=== PATIENT | male | born 2000 | race Caucasian/White ===

== ENCOUNTER → 2023-06-09 | Emergency (ER) | payer BC, SELFPAY ==
[~2023-06-09] MED LIST: DIPHENHYDRAMINE 50 MG/ML VIAL ONE; METOCLOPRAMIDE 10 MG/2mL INJ ONE; NA CHLORIDE 0.9% 1,000 ML ONE; POTASSIUM CL SA 10 MEQ TAB PO ONE; hydrOXYzine HCL 25 MG TAB ONE
--- OUTSIDE RECORDS SUMMARY | 2023-06-09 15:22 | XMS REPORT | Continuity of Care Document ---
Author Name Unknown Address [address] [facility] [address] [place] [address] [facility] thconnect Address [address] [facility] [address] [place] [address] Care Team Providers Care Lead Caregiver Name Role Phone PCP, PATIENT DOES NOT HAVE A Primary Care Physic AYAN Valera Attending Clinician Unavailable Payers Payer Name Policy Type Policy Number Effective Date Expirati on Date Source [facility] - OUT OF STATE [id number] 2016 00:00:00 Allergies, Adverse Reactions, Alerts Allergy Name Allergy Type Status Severity Reaction(s) Onset Date Inactive Date Treating Clinician Comments Source NO KNOWN ALLERGIE S Drug Class Active [facility] Encounters Start Date/Time End Date/Time Encounter Type Admission Type Attending Clinicians Care Facility Care Department Encounter ID Source 2021-04-21 10:40:00 2021-04-21 10:40:00 Outpatient AYAN MORRIS [facility] [id number] [facility]
[2023-06-09 16:51] LABS: Absolute Lymphocytes (CBC) 0.8 K/uL (0.7-4.9); Hematocrit 51.6 % (39.6-49.0); MCV 86.4 fL (80-100); MPV 8.5 fL (7.6-11.3); Platelets 238 thou/uL (152-406); RBC Red Blood Cell Count 5.97 M/uL (4.33-5.43)
[2023-06-09 17:07] LABS: Albumin 5.2 g/dL (3.4-5.0); Bilirubin Total 1.4 mg/dL (0.2-1.0); Potassium 3.1 mEq/L (3.5-5.1); Protein, Total 8.4 g/dL (6.4-8.2)
--- NOTE | 2023-06-09 17:36 | EDPHYS ---
Physician Documentation [facility] Name: Osmany Perez Age: 23 yrs Sex: Male : 2000 Arrival Date: 06/09/2023 Time: 15:20 Bed 14 Private MD: ED Physician Bogdan De La Paz HPI: 06/09 16:36 This 23 yrs old Male presents to ER via Wheelchair with complaints of ec2 Vomiting, Anxiety, Stomach pain/dehydration. 16:36 patient arrives today for evaluation of anxiety as well as nausea and vomiting. Patient ec2 reports he has issues with anxiety, as well as to take long-term anxiety medications however has not taken them. Patient reports that he was diagnosed with COVID approximately 1 month ago this is 1+ of his nausea and vomiting symptoms started. He reports decreased p.o. intake. Reports no fevers or chills, urinary problems.. Historical: - Allergies: 15:51 No Known Allergies; db - PMHx: 15:51 None; db - PSHx: 15:51 None; db - Immunization history:: Adult Immunizations unknown. - Social history:: Smoking status: Patient denies any tobacco usage or history of. ROS: 16:36 Constitutional: as per hpi ec2 Exam: 16:36 Constitutional: GEN: NAD Head: atraumatic Eyes: EOMI Ears: External ears are ec2 normal. CV: regular rate LUNGS: no respiratory distress ABD: non-distended, soft, nontender, no guarding, nonrigid SKIN: no evidence of rashes MSK: no evidence of trauma NEURO: moves all extremities equally. Psych: Markedly anxious individual Vital Signs: 15:48 BP 121 / 74; Pulse 108; Resp 20; Temp 98.7(O); Pulse Ox 99% ; Weight 61.23 kg; Height 6 db ft. 0 in. ; 17:13 BP 102 / 66; Pulse 57; Resp 16 S; Pulse Ox 99% on R/A; kc6 18:12 BP 112 / 62; Pulse 65; Resp 17 S; Pulse Ox 99% on R/A; kc6 15:48 Body Mass Index 18.31 (61.23 kg, 182.88 cm) db MDM: 16:22 Patient medically screened. ec2 16:36 Data reviewed: vital signs. ED course: Patient arrives today for anxiety and nausea and ec2 vomiting. Examination remarkable for well-appearing nontoxic individual is otherwise in no acute distress with a reassuring examination we will does have some anxiety. Will obtain lab work and treat the patient's symptoms. 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 Low suspicion for appendicitis or UTI given the patient's general well appearance and his reassuring abdominal examination.. 16:56 ED course: CBC with slight leukocytosis, reassuring hemoglobin. . ec2 17:24 ED course: Metabolic profile with slight hypokalemia with a potassium of 3.1, minimal ec2 anion gap at 15.1. Some dehydration noted with a creatinine 1.33 and GFR 78. I suspect ultimately this is all from patient's poor p.o. intake and likely starvation ketosis. . 17:36 ED course: On reassessment patient reports marked improvement in his symptoms. Will ec2 discharge home. Return precautions given.. 06/09 16:22 Order name: CBC with Diff; Complete Time: 16:55 ec2 06/09 16:22 Order name: CMP; Complete Time: 17:23 ec2 Administered Medications: 16:26 Drug: hydrOXYzine PO 50 mg PO once Route: PO; kc6 17:14 Follow up: Response: No adverse reaction; Anxiety decreased; RASS: Drowsy (-1) kc6 16:43 Drug: NS 0.9% IV 1000 ml IV at 1 bolus Per protocol; 1000 mL bolus Route: IV; Rate: 1 kc6 bolus; Site: right antecubital; 18:11 Follow up: Response: No adverse reaction; IV Status: Completed infusion; IV Intake: kc6 1000ml 16:43 Drug: metoCLOPramide IVP 10 mg IVP once; over 1 to 2 minutes Route: IVP; Site: right kc6 antecubital; 17:14 Follow up: Response: No adverse reaction; Nausea is decreased; Vomiting decreased kc6 16:43 Drug: diphenhydrAMINE IVP 25 mg IVP once Route: IVP; Site: right antecubital; kc6 17:14 Follow up: Response: No adverse reaction; RASS: Drowsy (-1) kc6 17:35 Drug: Potassium Chloride PO 40 mEq PO once Route: PO; kc6 18:11 Follow up: Response: No adverse reaction kc6 Disposition Summary: 06/09/23 17:35 Discharge Ordered Notes: Location: Home ec2 Condition: Stable ec2 Diagnosis - Generalized anxiety disorder ec2 - Vomiting ec2 Followup: ec2 - With: Private Physician - When: - Reason: Re-evaluation by your physician Discharge Instructions: - Discharge Summary Sheet ec2 Forms: - Medication Reconciliation Form ec2 - Thank You Letter ec2 - Antibiotic Education ec2 - Prescription Opioid Use ec2 - Patient Portal Instructions ec2 - Leadership Thank You Letter ec2 Prescriptions: - Reglan 10 mg Oral Tablet - take 1 tablet ORAL route every 6 hours take 30 minutes before meals and at ec2 bedtime; 20 tablet; Refills: 0, Product Selection Permitted Signatures: Dispatcher [employer] EDTequila Saunders RN RN kc6 Ashanti Freeman RN RN db Bogdan De La Paz MD MD ec2 Corrections: (The following items were deleted from the chart) 16:56 16:36 patient arrives today for evaluation of anxiety as well as nausea and vomiting. ec2 Patient reports he has issues with anxiety, as well as to take long-term anxiety medications however has not taken them. Patient reports that he is also having nausea and vomiting ongoing for the past month. Reports no abdominal pain. Reports no fevers or chills, urinary problems.. ec2
--- NOTE | 2023-06-09 17:36 | ER ---
Nurse's Notes [facility] Name: Osmany Perez Age: 23 yrs Sex: Male : 2000 Arrival Date: 06/09/2023 Time: 15:20 Bed 14 Private MD: Diagnosis: Generalized anxiety disorder;Vomiting Presentation: 06/09 15:48 Chief complaint: Patient states: STATES DX WITH COVID X 1 MONTH AGO. STATES STILL HAS db DIZZINESS, NAUSEA AND VOMITING WITH LIGHT HEADED FEELING WHICH GOT WORSE X 1 WEEK. WENT TO PCP TODAY AND WAS SENT TO ED FOR DEHYDRATION, FLUIDS AND LAB WORK. PT REPORTS ANXIETY AT DR. OFFICE. Coronavirus screen: Client denies travel out of the [place] in the last 14 days. At this time, the client does not indicate any symptoms associated with coronavirus-19. Ebola Screen: Patient negative for fever greater than or equal to 101.5 degrees Fahrenheit, and additional compatible Ebola Virus Disease symptoms Patient denies exposure to infectious person. Patient denies travel to an Ebola-affected area in the 21 days before illness onset. No symptoms or risks identified at this time. Initial Sepsis Screen: Does the patient meet any 2 criteria? HR > 90 bpm. Does the patient have a suspected source of infection? No. Patient's initial sepsis screen is negative. Risk Assessment: Do you want to hurt yourself or someone else? Patient reports no desire to harm self or others. Onset of symptoms was June 05, 2023. 15:48 Method Of Arrival: Wheelchair db 15:48 Acuity: TOMAS 3 db Triage Assessment: 15:51 General: Appears in no apparent distress. uncomfortable, Behavior is cooperative, db anxious. Pain: Complains of pain in abdomen. Neuro: Level of Consciousness is awake, alert, obeys commands, Oriented to person, place, time, situation. GI: Abdomen is flat, non-distended, Reports nausea, vomiting. Historical: - Allergies: 15:51 No Known Allergies; db - PMHx: 15:51 None; db - PSHx: 15:51 None; db - Immunization history:: Adult Immunizations unknown. - Social history:: Smoking status: Patient denies any tobacco usage or history of. Screenin:11 [facility] ED Fall Risk Assessment (Adult) History of falling in the last 3 months, kc6 including since admission No falls in past 3 months (0 pts) Confusion or Disorientation No (0 pts) Intoxicated or Sedated No (0 pts) Impaired Gait No (0 pts) Mobility Assist Device Used No (0 pt) Altered Elimination No (0 pt) Score/Fall Risk Level 0 - 2 = Low Risk. Abuse screen: Denies threats or abuse. Denies injuries from another. Nutritional screening: No deficits noted. Tuberculosis screening: No symptoms or risk factors identified. Assessment: 16:15 General: Appears in no apparent distress. uncomfortable, well groomed, well developed, kc6 Behavior is cooperative, anxious, Reports feeling ill for fatigue for. Pain: Denies pain. Neuro: Level of Consciousness is awake, alert, obeys commands, Oriented to person, place, time, situation, Appropriate for age. Cardiovascular: Denies chest pain, Capillary refill < 3 seconds. Respiratory: Airway is patent Trachea midline Respiratory effort is even, unlabored, Respiratory pattern is regular, symmetrical. GI: Abdomen is flat, non-distended, Bowel sounds present X 4 quads. Abd is soft and non tender X 4 quads. Reports nausea, vomiting, Patient currently denies abdominal pain, diarrhea. : No signs and/or symptoms were reported regarding the genitourinary system. EENT: No signs and/or symptoms were reported regarding the EENT system. Derm: No signs and/or symptoms reported regarding the dermatologic system. Skin is intact, is healthy with good turgor, Skin is pink, warm \T\ dry. Musculoskeletal: No signs and/or symptoms reported regarding the musculoskeletal system. Circulation, motion, and sensation intact. Capillary refill < 3 seconds, Range of motion: intact in all extremities. 17:13 Reassessment: Patient appears in no apparent distress at this time. No changes from kc6 previously documented assessment. Patient and/or family updated on plan of care and expected duration. Pain level reassessed. Patient is alert, oriented x 3, equal unlabored respirations, skin warm/dry/pink. 18:12 Reassessment: Patient appears in no apparent distress at this time. No changes from kc6 previously documented assessment. Patient and/or family updated on plan of care and expected duration. Pain level reassessed. Patient is alert, oriented x 3, equal unlabored respirations, skin warm/dry/pink. Patient states feeling better. Patient states symptoms have improved. Vital Signs: 15:48 BP 121 / 74; Pulse 108; Resp 20; Temp 98.7(O); Pulse Ox 99% ; Weight 61.23 kg; Height 6 db ft. 0 in. ; 17:13 BP 102 / 66; Pulse 57; Resp 16 S; Pulse Ox 99% on R/A; kc6 18:12 BP 112 / 62; Pulse 65; Resp 17 S; Pulse Ox 99% on R/A; kc6 15:48 Body Mass Index 18.31 (61.23 kg, 182.88 cm) db ED Course: 15:23 Patient arrived in ED. ra3 15:24 Bogdan De La Paz MD is Attending Physician. ec2 15:51 Triage completed. db 15:51 Arm band placed on Patient placed in waiting room. db 16:14 Tequila Sung, CARYL is Primary Nurse. kc6 16:43 Inserted saline lock: 20 gauge in right antecubital area, using aseptic technique. kc6 Blood collected. Patient maintains SpO2 saturation greater than 95% on room air. 17:12 Patient has correct armband on for positive identification. Bed in low position. Call kc6 light in reach. Side rails up X2. Adult w/ patient. Client placed on continuous cardiac and pulse oximetry monitoring. NIBP monitoring applied. 18:12 No provider procedures requiring assistance completed. IV discontinued, intact, kc6 bleeding controlled, No redness/swelling at site. Pressure dressing applied. Administered Medications: 16:26 Drug: hydrOXYzine PO 50 mg PO once Route: PO; kc6 17:14 Follow up: Response: No adverse reaction; Anxiety decreased; RASS: Drowsy (-1) kc6 16:43 Drug: NS 0.9% IV 1000 ml IV at 1 bolus Per protocol; 1000 mL bolus Route: IV; Rate: 1 kc6 bolus; Site: right antecubital; 18:11 Follow up: Response: No adverse reaction; IV Status: Completed infusion; IV Intake: kc6 1000ml 16:43 Drug: metoCLOPramide IVP 10 mg IVP once; over 1 to 2 minutes Route: IVP; Site: right kc6 antecubital; 17:14 Follow up: Response: No adverse reaction; Nausea is decreased; Vomiting decreased kc6 16:43 Drug: diphenhydrAMINE IVP 25 mg IVP once Route: IVP; Site: right antecubital; kc6 17:14 Follow up: Response: No adverse reaction; RASS: Drowsy (-1) kc6 17:35 Drug: Potassium Chloride PO 40 mEq PO once Route: PO; kc6 18:11 Follow up: Response: No adverse reaction kc6 Medication: 18:12 VIS not applicable for this client. kc6 Intake: 18:11 IV: 1000ml; Total: 1000ml. kc6 Outcome: 17:35 Discharge ordered by . ec2 18:12 Discharged to home ambulatory, with family, kc6 18:12 Condition: improved 18:12 Discharge instructions given to patient, family, Instructed on discharge instructions, follow up and referral plans. medication usage, Demonstrated understanding of instructions, follow-up care, medications, Prescriptions given X 1, 18:12 Patient left the ED. kc6 Signatures: Tequila Sung RN RN kc6 Ashanti Freeman RN RN db Corral, Edwin, MD MD ec2 Dayan Roy 3
[2023-06-09 18:36] VITALS: BP 112/62; TEMP 98.7; O2SAT 99
== END ==
LOC: ER 15:20
DX: F41.1 Generalized anxiety disorder (principal)
CPT/HCPCS: 36415; 80053; 85025; J1200; J2765; J7030

== ENCOUNTER 2024-04-10 13:03 | Emergency (ER) | payer SELFPAY ==
--- OUTSIDE RECORDS SUMMARY | 2024-04-10 13:07 | XMS REPORT | Continuity of Care Document ---
Author Name Unknown Address [address] [facility] [address] [place] [id number] [facility] thconnect Address [address] [facility] [address] [place] [address] Care Team Providers Care Reservations Manager Name Role Phone Pcp, Patient Does Not Have A Primary Care Physic ramon AYAN DESAI Attending Clinician Unavailable Payers Payer Name Policy Type Policy Number Effective Date Expirati on Date [facility] [place] [facility] [id number] 2016 00:00:00 Allergies, Adverse Reactions, Alerts Allergy Name Allergy Type Status Severity Reaction(s) Onset Date Inactive Date Treating Clinician Comments Source NO KNOWN ALLERGIE S Drug Class Active [facility] Social History Social Habit Start Date Stop Date Quantity Comments Source Sexual orientation [facility] Sex assigned at 2000 00:00:00 2000 00:00:00 [facility] Smoking Status Start Date Stop Date Source Tobacco smoking consumption unknown [facility] Vital Signs Vital Name Observation Time Observation Value Comments Yuliana jackson Systolic blood pressure 2021-04-21 16:36:00 121 mm[Hg] [facility] Diastolic blood pressure 2021-04-21 16:36:00 85 mm[Hg] [facility] Heart rate 2021-04-21 16:36:00 61 /min [facility] Body temperature 2021-04-21 16:36:00 35.67 Saskia [facility] Respiratory rate 2021-04-21 16:36:00 16 /min [facility] Body height 2021-04-21 16:36:00 185.4 cm [facility] Body weight 2021-04-21 16:36:00 72.292 kg [facility] BMI 2021-04-21 16:36:00 21.03 kg/m2 [facility] Oxygen saturation in Arterial blood by Pulse oximetry 2021-04-21 16:36:00 98 /min [facility] Encounters Start Date/Time End Date/Time Encounter Type Admission Type Attending Clinicians Care Facility Care Department Encounter ID Source 2021-04-21 10:40:00 2021-04-21 10:40:00 Outpatient AYAN MORRIS [facility] [id number] [facility] 2021-04-21 10:30:00 2021-04-21 10:30:00 Outpatient AYAN MORRIS [facility] [id number] [facility]
[2024-04-10] MEDS ORDERED: hydrOXYzine HCL 25 MG TAB ONE (14:18)
--- NOTE | 2024-04-10 15:05 | EDPHYS ---
Physician Documentation [facility] Name: Osmany Perez Age: 24 yrs Sex: Male : 2000 Arrival Date: 04/10/2024 Time: 13:03 Bed 14 Private MD: ED Physician Jorge Oliva HPI: 04/10 14:26 This 24 yrs old Male presents to ER via Ambulatory with complaints of Laceration To sb4 Head. 14:26 The patient has a laceration related to:. got very anxious while in the shower, sb4 tachypneic, fell down, sustaining laceration to upper forehead/beginning of scalp. unsure of loc. tetanus not up to date. Historical: - Allergies: 13:59 No Known Allergies; hb - Home Meds: 13:59 Klonopin Oral [Active]; hb - PMHx: 13:59 Anxiety; hb - PSHx: 13:59 None; hb - Immunization history:: Adult Immunizations up to date. - Infectious Disease History:: Denies. - Social history:: Smoking status: Patient denies any tobacco usage or history of. ROS: 14:26 Constitutional: Negative for fever, chills, and weight loss, sb4 14:26 Skin: Positive for laceration(s), of the top of head, 14:26 Psych: Positive for anxiety, 14:26 All other systems are negative, Exam: 14:26 Head/Face: Normocephalic, atraumatic. Eyes: Extra-ocular motions intact. Periorbital sb4 areas with no swelling, redness, or edema. ENT: Mucous membranes moist. Respiratory: No increased work of breathing, no retractions or nasal flaring. 14:26 Constitutional: The patient appears alert, awake, anxious, 14:26 Skin: injury, laceration(s), the wound is approximately 6 cm(s), with a depth of .5 cm(s), of the top of head, that can be described as clean, no foreign body, linear, without bleeding, Vital Signs: 13:57 BP 132 / 82; Pulse 64; Resp 16; Temp 98.5(O); Pulse Ox 100% on R/A; Weight 61.23 kg; hb Height 6 ft. 0 in. ; Pain 4/10; 15:29 BP 112 / 65; Pulse 70; Resp 17 S; Pulse Ox 100% on R/A; kc6 13:57 Body Mass Index 18.31 (61.23 kg, 182.88 cm) hb 13:57 Pain Scale: Adult hb Laceration: 15:17 Wound Repair of 6cm ( 2.4in ) subcutaneous laceration to top of head. Distal sb4 neuro/vascular/tendon intact. Wound prep: Simple cleansing, Copious irrigation. Skin closed with 8 [place] using staple gun. Patient tolerated well. MDM: 13:43 Medical Screening Exam initiated sb4 15:17 Data reviewed: vital signs, nurses notes, and as a result, I will discharge patient. sb4 Historians other than the Patient: Spouse/Significant Other: mom and dad. Counseling: I had a detailed discussion with the patient and/or guardian regarding the historical points, exam findings, and any diagnostic results supporting the discharge/admit diagnosis, the need for outpatient follow up, for staple removal in 1 week, to return to the emergency department if symptoms worsen or persist or if there are any questions or concerns that arise at home. Administered Medications: 14:20 Drug: hydrOXYzine PO 50 mg PO once Route: PO; kc6 15:27 Follow up: Response: No adverse reaction; Anxiety decreased kc6 15:27 Drug: Boostrix Tdap IM 0.5 ml IM once; as a single dose Route: IM; Site: right deltoid; kc6 Disposition Summary: 04/10/24 15:04 Discharge Ordered Notes: Location: Home sb4 Problem: new sb4 Symptoms: have improved sb4 Condition: Stable sb4 Diagnosis - Laceration without foreign body of scalp sb4 Followup: sb4 - With: Private Physician - When: 1 week - Reason: Staple/Suture removal Discharge Instructions: - Discharge Summary Sheet sb4 - Laceration Care, Adult, [id number] sb4 - Sutures, Estefany, or Adhesive Wound Closure, [id number] sb4 Forms: - Patient Portal Instructions sb4 - Leadership Thank You Letter sb4 Addendum: 04/13/2024 12:42 Co-signature as Attending Physician, Jorge Oliva MD I agree with the assessment and c high plan of care. Signatures: Jorge Oliva MD MD cha Baxter, Heather, RN RN Tequila Sung RN RN kc6 Brown, Gillian, PA-C PA-C sb4
--- NOTE | 2024-04-10 15:05 | ER ---
Nurse's Notes [facility] Name: Osmany Perez Age: 24 yrs Sex: Male : 2000 Arrival Date: 04/10/2024 Time: 13:03 Bed 14 Private MD: Diagnosis: Laceration without foreign body of scalp Presentation: 04/10 13:57 Chief complaint: Laceration on top of head after slipped in shower. Bleeding hb controlled. Coronavirus screen: At this time, the client does not indicate any symptoms associated with coronavirus-19. Ebola Screen: No symptoms or risks identified at this time. Complicating Factors: There are no complicating factors for this patient. Initial Sepsis Screen: Does the patient meet any 2 criteria? No. Patient's initial sepsis screen is negative. Does the patient have a suspected source of infection? No. Patient's initial sepsis screen is negative. Risk Assessment: Do you want to hurt yourself or someone else? Patient reports no desire to harm self or others. Onset of symptoms was April 10, 2024. 13:57 Method Of Arrival: Ambulatory hb 13:57 Acuity: TOMAS 4 hb Historical: - Allergies: 13:59 No Known Allergies; hb - Home Meds: 13:59 Klonopin Oral [Active]; hb - PMHx: 13:59 Anxiety; hb - PSHx: 13:59 None; hb - Immunization history:: Adult Immunizations up to date. - Infectious Disease History:: Denies. - Social history:: Smoking status: Patient denies any tobacco usage or history of. Screenin:22 [facility] ED Fall Risk Assessment (Adult) History of falling in the last 3 months, kc6 including since admission Yes- physiologic fall (2 pts) Confusion or Disorientation No (0 pts) Intoxicated or Sedated No (0 pts) Impaired Gait No (0 pts) Mobility Assist Device Used No (0 pt) Altered Elimination No (0 pt) Score/Fall Risk Level 0 - 2 = Low Risk Oriented to surroundings, Maintained a safe environment, Educated pt \T\ family on fall prevention, incl call for assistance when getting out of bed. Abuse screen: Denies threats or abuse. Denies injuries from another. Nutritional screening: No deficits noted. Tuberculosis screening: No symptoms or risk factors identified. Assessment: 14:20 General: Appears in no apparent distress. comfortable, slender, well groomed, Behavior kc6 is calm, cooperative, appropriate for age. Pain: Complains of pain in top of head. Neuro: Level of Consciousness is awake, alert, obeys commands, Oriented to person, place, time, situation, Appropriate for age. Cardiovascular: Capillary refill < 3 seconds. Respiratory: Airway is patent Trachea midline Respiratory effort is even, unlabored, Respiratory pattern is regular, symmetrical. GI: No signs and/or symptoms were reported involving the gastrointestinal system. : No signs and/or symptoms were reported regarding the genitourinary system. EENT: No signs and/or symptoms were reported regarding the EENT system. Derm: Skin is healthy with good turgor, Skin is dry, Skin is normal, pink, Skin temperature is warm. Musculoskeletal: No signs and/or symptoms reported regarding the musculoskeletal system. Circulation, motion, and sensation intact. Range of motion: intact in all extremities. Injury Description: Laceration sustained to top of head is clean, 2.6 to 7.5 cm long, not bleeding, was sustained 30-60 minutes ago. is bleeding no active bleeding noted. 15:28 Reassessment: Patient appears in no apparent distress at this time. No changes from kc6 previously documented assessment. Patient and/or family updated on plan of care and expected duration. Pain level reassessed. Patient is alert, oriented x 3, equal unlabored respirations, skin warm/dry/pink. Patient states feeling better. Patient states symptoms have improved. Vital Signs: 13:57 BP 132 / 82; Pulse 64; Resp 16; Temp 98.5(O); Pulse Ox 100% on R/A; Weight 61.23 kg; hb Height 6 ft. 0 in. ; Pain 4/10; 15:29 BP 112 / 65; Pulse 70; Resp 17 S; Pulse Ox 100% on R/A; kc6 13:57 Body Mass Index 18.31 (61.23 kg, 182.88 cm) hb 13:57 Pain Scale: Adult hb ED Course: 13:06 Patient arrived in ED. al6 13:08 Gillian Boyd PA-C is PHCP. sb4 13:08 Jorge Oliva MD is Attending Physician. sb4 13:59 Triage completed. hb 14:00 Arm band placed on. hb 14:16 Sung, Tequila, RN is Primary Nurse. kc6 14:21 Patient has correct armband on for positive identification. Placed in gown. Bed in low kc6 position. Call light in reach. Side rails up X 1. Adult w/ patient. environmental monitoring technician on. Pulse ox on. NIBP on. Door closed. Noise minimized. Lights dimmed. Pillow given. 14:22 Patient maintains SpO2 saturation greater than 95% on room air. kc6 15:17 Assist provider with laceration repair on top of head that was between 7.6 to 12.5 cm kc6 using lizette. Set up tray. Performed by Gillian Boyd PA-C Patient tolerated well. 15:29 Patient did not have IV access during this emergency room visit. kc6 Administered Medications: 14:20 Drug: hydrOXYzine PO 50 mg PO once Route: PO; kc6 15:27 Follow up: Response: No adverse reaction; Anxiety decreased kc6 15:27 Drug: Boostrix Tdap IM 0.5 ml IM once; as a single dose Route: IM; Site: right deltoid; kc6 Medication: 15:29 VIS not applicable for this client. kc6 Outcome: 15:04 Discharge ordered by . sb4 15:29 Discharged to home ambulatory, with family, kc6 15:29 Condition: good 15:29 Discharge instructions given to patient, family, Instructed on discharge instructions, follow up and referral plans. wound care, Demonstrated understanding of instructions, follow-up care, wound care, 15:30 Patient left the ED. kc6 Signatures: Dayana Miramontes RN RN Tequila Sung RN RN Gillian Green PA-C PA-C sb4 Landin, Alissa al6
[2024-04-10] MEDS ORDERED: TDAP (DIPHTH,PERTUSS(ACELL),TET VAC) 0.5 ML VIAL IMVAC ONE (15:23)
[2024-04-10 15:34] VITALS: TEMP 98.5; O2SAT 100
[2024-04-10 15:35] VITALS: BP 112/65
== END 2024-04-10 15:30 | disposition home or self-care (01) ==
LOC: ER 13:03
DX: S01.01XA Laceration without foreign body of scalp, initial encounter (principal)
CPT/HCPCS: 12002; 96372; 99285